=== PATIENT | female | born 1985 | race Caucasian/White ===

== ENCOUNTER → 2017-08-31 | Outpatient (CLI) | payer OTHER ==
[~2017-08-31] MED LIST: BUTA1CAP4 PO; BUTA1CAP51 PO; CIPR-214 PO; CIPR-344 PO; CYC10 PO; ESC10 PO; ESCI20TA38 PO; FAMO20TA28 PO; FERR-1 PO; FERR-125 PO; FIO PO; GABA-503 PO; HYDR-385 PO; HYDR-389 PO; HYDR-4309 PO; HYDR2TAB4 PO; HYDR2TAB74 PO; HYOS-49 PO; IBU600 PO; IBU800 PO; IBUP600T22 PO; IBUP800T37 PO; KET10 PO; LEVO50TA86 PO; LOR5/325 PO; LORA-1456 PO; NIFE20CA8 PO; ONDA4TAB PO; ONDA4TAB97 PO; OXYC-489 PO; PANT40SU3 PO; PER PO; PHEN200T32 PO; PRED20TA6 PO; PREN-67 PO; PROM-110 PO; SUCR1ORA17 PO; SULF-198 PO; TIZA4CAP6 PO
--- NOTE | 2017-08-31 14:18 | RADIOLOGY IMAGING REPORT ---
FACILITY: [facility] - [place] PATIENT NAME: Torres Najera : 1985 MR: [id number] V: [id number] EXAM DATE: ORDERING PHYSICIAN: MONE ANDRE TECHNOLOGIST: Location: [facility] [place] Patient: Torres Najera : 1985 Visit/Account:[id number] Date of Sevice: 08/31/2017 Exam type: LUMBAR SPINE 2 OR 3 VIEW History: Postlaminectomy syndrome, low back pain with radiation superior to L4-5 fusion Comparison: September 05, 2015. Findings: Standing flexion and extension views lumbar spine demonstrate postsurgical changes from posterior lum bar interbody fusion at L4 and L5 with pedicle screws and short segment posterior fixation rods and i ntervertebral disc spacer. There is no evidence of fracture or subluxation. Hardware appears to bee n good position on the lateral view. The remainder the disc spaces appear well-preserved There are s urgical clips in the upper abdomen IMPRESSION: 1. Postsurgical changes from posterior lumbar interbody fusion at L4-5 with no evidence of fractures or subluxations. Report Dictated By: Charline Quiñones MD at 08/31/2017 2:10 PM Report E-Signed By: Charline Quiñones MD at 08/31/2017 2:14 PM WSN:[email or web address]
== END ==
LOC: RAD 08:10
PROVIDERS: ATTEND Neurological Surgery
DX: Z96.7 Presence of other bone and tendon implants (principal)
CPT/HCPCS: 72100

== ENCOUNTER → 2017-09-15 | Outpatient (REF) | payer OTHER ==
[2017-09-15 20:31] LABS: PLATELET COUNT, AUTOMATED 180 K/uL (150-450)
[2017-09-15 20:55] LABS: INR 0.96
== END ==
LOC: ZZSTITCHES 20:12
PROVIDERS: ATTEND Physician Assistant
DX: Z01.818 Encounter for other preprocedural examination (principal)
CPT/HCPCS: 82310; 82374; 82435; 82565; 82947; 84132; 84295; 84520; 85025; 85610; 85730

== ENCOUNTER 2017-10-02 11:11 | Emergency (ER) | payer OTHER ==
[2017-10-02] MEDS ORDERED: DIAZEPAM 50 MG/10 ML MDV IVP ONE (11:30)
[2017-10-02] MEDS ORDERED: KETOROLAC 30 MG/ML VIAL IVP ONE (11:30)
--- NOTE | 2017-10-02 11:37 | ER Report ---
History and Physical Time Seen By MD: 11:16 Hx. of Stated Complaint: PATIENT REPORTS THAT SHE HAD A BACK SURGERY ON TUESDAY AND CANNOT GET THE PAIN OR THE BACK SPASMS UNDER CONTROL HPI/ROS CHIEF COMPLAINT: Back pain and back spasms HISTORY OF PRESENT ILLNESS: Patient is a 32-year-old female here status post L4- L5 fusion on Tuesday. Patient reports having worsening pain yesterday with spasms in the lower back and paraspinal musculature especially with movement and weightbearing. Patient denies fevers, chills, chest, shortness breath, incontinence of bowel or bladder, saddle anesthesia, lower extremity weakness. She has been taking Percocet and Zanaflex without significant relief of symptoms. REVIEW OF SYSTEMS: Constitutional: No fever, no chills. Eyes: No discharge. ENT: No sore throat. Cardiovascular: No chest pain, no palpitations. Respiratory: No cough, no shortness of breath. Gastrointestinal: No abdominal pain, no vomiting. Genitourinary: No hematuria. Musculoskeletal: + lower lumbar back pain and paraspinal muscle tenderness Skin: + no drainage or erythema of the surgical wound Neurological: No headache. Allergies: Coded Allergies: ferric carboxymaltose (Verified Allergy, Severe, ANAPHYLAXIS, 01/21/17) iron (Verified Allergy, Severe, ANAPHYLAXIS, 01/21/17) Chest discomfort and throat tightness sodium ferric gluconate complex (Verified Allergy, Severe, ANAPHYLAXIS, 01/21/17) sucrose (Verified Allergy, Severe, ANAPHYLAXIS, 01/21/17) cephalexin (Verified Allergy, Intermediate, HIVES, 01/21/17) latex (Verified Allergy, Mild, RASH, 01/21/17) Penicillins (Verified Allergy, Unknown, 01/21/17) tramadol (Verified Allergy, Unknown, ITCHING, 01/21/17) Home Meds Active Scripts Diazepam (VALIUM) 5 Mg Tablet, 5 MG PO PRN for Muscle Relaxant, #5 TAB Prov:MILA FREY DO 10/02/17 Promethazine Hcl (PROMETHAZINE HCL) 25 Mg Tablet, 25 MG PO Q6H Y for NAUSEA/ VOMITING, #14 TAB Prov:VIKA LUU DO 01/21/17 Ondansetron Hcl (ZOFRAN) 4 Mg Tablet, 4 MG PO Q6H Y for NAUSEA/VOMITING, #10 Prov:VIKA LUU DO 01/21/17 Hydrocodone Bit/Acetaminophen (HYDROCODON-ACETAMINOPHEN 5-325) 1 Each Tablet, 1 EACH PO Q4-6H Y for PAIN, #12 TAB 0 Refills TAKE ONE TABLET BY MOUTH EVERY 4-6 HOURS NEEDED FOR PAIN Prov:HERO ESCALANTE MD 04/18/16 Reported Medications Hyoscyamine Sulfate (LEVSIN) 0.125 Mg Tablet, 1-2 TAB PO TID 01/21/17 Tizanidine Hcl (ZANAFLEX) 4 Mg Capsule, 4 MG PO QHS 03/28/15 Hx Smoking: No Smoking Status: Never Smoker Exposure to Second Hand Smoke?: No Hx Substance Use Disorder: No Hx Alcohol Use: Yes Constitutional Vital Sign - Last 24 Hours 10/02/17 10/02/17 10/02/17 10/02/17 11:16 11:21 11:30 12:20 Temp 99.1 Pulse 91 Resp 28 B/P (MAP) 92/58 92/58 (69) 95/51 (66) 111/72 (85) Pulse Ox 94 10/02/17 10/02/17 10/02/17 10/02/17 12:25 12:30 12:55 13:00 Pulse 88 83 B/P (MAP) 72/50 (57) 100/66 (77) Pulse Ox 91 97 10/02/17 10/02/17 13:26 13:30 Pulse 92 B/P (MAP) 90/44 (59) 90/44 (59) Pulse Ox 94 O2 Delivery Room Air Physical Exam General Appearance: The patient is alert, has no immediate need for airway protection and no signs of toxicity. [ ] Eyes: Pupils equal and round no pallor or injection. Respiratory: There are no retractions, lungs are clear to auscultation. Cardiovascular: Regular rate and rhythm. Gastrointestinal: Abdomen is soft and non tender, no masses, bowel sounds normal. Neurological: No lower extremity weakness or paresthesias Skin: + well healing midline surgical wound without erythema or drainage Musculoskeletal: Neck is supple non tender. Extremities are nontender, nonswollen and have full range of motion. DIFFERENTIAL DIAGNOSIS: After history and physical exam differential diagnosis was considered for muscle spasm, post op infection, muscle strain, neuropathy Medical Decision Making ED Course/Re-evaluation ED Course Patient is a 32-year-old female here status post for L5 fusion on traction complaining of lower back pain and bilateral paraspinal muscle spasms in spite of taking Percocet and Zanaflex. Patient is afebrile at time of evaluation and denies saddle anesthesia, lower extremity weakness or paresthesias, bowel or bladder incontinence. Patient had an unremarkable physical exam with intact motor strength of the lower extremities, no erythema or drainage of the surgical wound site. Patient was given vallium and fentanyl IV for muscle spasm and analgesia relief. She was given a prescription for some Valium for muscle spasm relief. Patient was advised to follow up with her back surgeon in the next several days. Decision to Disposition Date: October 02, 2017 Decision to Disposition Time: 13:31 Depart Departure Latest Vital Signs Vital Signs Date Time Temp Pulse Resp B/P (MAP) Pulse Ox O2 Delivery O2 Flow Rate FiO2 10/02/17 13:30 92 90/44 (59) 94 Room Air 10/02/17 11:16 99.1 28 Impression: Primary Impression: Back pain Additional Impression: History of back surgery Condition: Improved Disposition: HOME OR SELF-CARE Referrals: TORREY SHINE MD (PCP) New Scripts Diazepam (VALIUM) 5 Mg Tablet 5 MG PO PRN for Muscle Relaxant, #5 TAB Prov: MILA FREY DO 10/02/17 Patient Instructions: Muscle Spasm (ED) Additional Instructions: He may take 1 tablet of Valium every 8 hours as needed for muscle relaxant and muscle pain relief. Please do not mix this medication with her Zanaflex. Please do not thinks this medication with alcohol and do not operate a car or heavy machinery while taking this medication and make you drowsy or unable to coordinate. Please follow-up with your surgeon in the next day or 2 for further evaluation. Please return if she develops worsening pain, fevers, chills, abdominal pain, numbness in your groin area, bowel or bladder incontinence, leg weakness or numbness. Problem Qualifiers MILA FREY DO October 02, 2017 11:37
[2017-10-02] MEDS ORDERED: KETOROLAC 60 MG/2 ML VIAL IM ONE (12:10)
[2017-10-02] MEDS ORDERED: DIA5 PO (13:29)
[2017-10-02 13:30] VITALS: BP 90/44
== END 2017-10-02 13:47 | disposition home or self-care (01) ==
LOC: ER 11:30
DX: M54.5 Low back pain (principal); Z98.1 Arthrodesis status
CPT/HCPCS: 96372; 96374; 99283; J1885; J3360